=== PATIENT | male | born 1960 | race Asian ===

== ENCOUNTER 2020-07-29 05:48 | Day surgery (SDC) | payer BC ==
[~2020-07-29 05:48] MED LIST: Dextrose 5%-0.45% NaCl 1,000 ML IV SCH; Sodium Chloride 0.9% 10 ML Syringe FLUSH PRN
[2020-07-29] MEDS ORDERED: fentaNYL 100 MCG/2 ML SDV IV ONE ×3 (05:49→07:04)
[2020-07-29] MEDS ORDERED: Midazolam 1 MG/ML 2 ML SDV IV ONE ×7 (05:49→07:13)
[2020-07-29] MEDS ORDERED: fentaNYL 100 MCG/2 ML SDV ONE (06:44)
[2020-07-29] MEDS ORDERED: Midazolam 1 MG/ML 2 ML SDV ONE (06:44)
--- NOTE | 2020-07-29 08:18 | OR ---
DATE: 07/29/2020 PROCEDURE: Total colonoscopy. INSTRUMENT USED: PCF-H190DL Olympus video colonoscope. PREMEDICATIONS: Fentanyl 100 mcg intravenous, Versed 4 mg intravenous. The procedure was done under pulse oximetry, BP recording, and grips. INDICATION: The patient with abdominal pain and Hemoccult-positive stools. Colonoscopic examination is done for detection of any polypoid lesions and removal, endoscopic hemostasis therapy if needed. DESCRIPTION OF PROCEDURE: Initial rectal exam was unremarkable. Rigid anoscopy was normal. The colonoscope was passed with ease up to the ileocecal area. Photographs were taken of the normal-appearing cecum identified by landmarks of appendiceal orifice and double-bulged ileocecal folds. No bleeding was noted from any of the visualized areas at the commencement of the examination. The bowel preparation was found to be adequate. Garrett scale 2 in all the regions, total score 6. No stricture. No vascular ectasia. No large isolated ulcerations seen. No evidence of diffuse inflammatory bowel disease in the form of friability, contact bleeding, or ulcerations. No polyp or tumor mass identified. Probing the proximal sides of folds and flexures using adequate distention and clearing up the stool material, withdrawal of the scope was made, cecum to rectum time over 6 minutes. No bleeding was noted from any of the visualized areas at the completion of examination. IMPRESSION: Normal study. The patient tolerated the procedure well. [facility] /[id number]
[2020-07-29] MEDS ORDERED: Dextrose 5%-0.45% NaCl 1,000 ML IV SCH (10:15)
[2020-07-29 10:18] VITALS: BP 133/73; PULSE 57
== END 2020-07-29 09:30 | disposition home or self-care (01) ==
LOC: DL.ENDO 05:48
PROVIDERS: ATTEND Internal Medicine Gastroenterology
DX: R19.5 Other fecal abnormalities (principal); R10.10 Upper abdominal pain, unspecified; I25.10 Atherosclerotic heart disease of native coronary artery without angina pectoris; I10 Essential (primary) hypertension; E78.5 Hyperlipidemia, unspecified; E11.9 Type 2 diabetes mellitus without complications; Z79.84 Long term (current) use of oral hypoglycemic drugs; Z90.49 Acquired absence of other specified parts of digestive tract; Z95.1 Presence of aortocoronary bypass graft; Z87.11 Personal history of peptic ulcer disease; Z87.891 Personal history of nicotine dependence
CPT/HCPCS: J2250; J3010; J7042

== ENCOUNTER 2020-08-05 05:21 | Day surgery (SDC) | payer BC ==
[2020-08-05] MEDS ORDERED: fentaNYL 100 MCG/2 ML SDV IV ONE ×3 (05:22→06:31)
[2020-08-05] MEDS ORDERED: Midazolam 1 MG/ML 2 ML SDV IV ONE ×3 (05:22→06:32)
[2020-08-05] MEDS ORDERED: Sodium Chloride 0.9% 10 ML Syringe FLUSH PRN (05:30)
[2020-08-05] MEDS ORDERED: Dextrose 5%-0.45% NaCl 1,000 ML IV SCH (05:30)
[2020-08-05] MEDS ORDERED: fentaNYL 100 MCG/2 ML SDV ONE (06:12)
[2020-08-05] MEDS ORDERED: Midazolam 1 MG/ML 2 ML SDV ONE (06:12)
--- NOTE | 2020-08-05 07:25 | OR ---
DATE: 08/05/2020 PROCEDURES: Esophagogastroduodenoscopy and multiple pinch biopsies. INSTRUMENT USED: GIF-HQ190 Olympus video panendoscope. PREMEDICATIONS: No oral or topical anesthesia used. Fentanyl 100 mcg intravenous, Versed 2 mg intravenous. The procedure was done under pulse oximetry, BP recording, and registered nurse cardiac. INDICATION: The patient with long-standing heartburn and upper abdominal pain unexplained and not responsive to medical measures and also has Hemoccult positive stools. Esophagogastroduodenoscopy is performed for detection of any active erosive lesions, Magana esophagus and/or malignancy also under consideration, H pylori status to be determined, endoscopic hemostasis therapy if needed. PROCEDURE IN DETAIL: The scope was passed with ease. Adequate visualization of the esophagus was made from proximal to distal areas. No upper esophageal lesions identified. No distal esophageal stricture. No uphill or downhill esophageal varices. No Elsy-Stauffer tear. No evidence of erosive esophagitis by [place] criteria. No esophageal polyp or tumor mass identified. Z-line was seen at around 39 cm distal to the oral verge, configuration consistent with grade 1 by ZAP classification. No proximal gastric varices noted. Gastric fundus examination by retroflexion showed no polypoid lesions. No gastric ulcer, malignant mass, or vascular ectasia identified. Duodenal bulb showed no ulcer. Visualized second part of the duodenum was unremarkable. Multiple pinch biopsies were taken from the gastric antrum and proximal body and sent for PyloriTek test for H pylori, and if negative in an hour, the tissue is to be sent for histopathology. No bleeding was noted from any of the visualized areas at the completion of examination. IMPRESSION: Normal study. The patient tolerated the procedure well. [facility] /[id number]
[2020-08-05 08:34] VITALS: BP 174/78; PULSE 50
== END 2020-08-05 08:46 | disposition home or self-care (01) ==
LOC: DL.ENDO 05:21
PROVIDERS: ATTEND Internal Medicine Gastroenterology
DX: R12 Heartburn (principal); R10.10 Upper abdominal pain, unspecified; I25.10 Atherosclerotic heart disease of native coronary artery without angina pectoris; E78.5 Hyperlipidemia, unspecified; E11.9 Type 2 diabetes mellitus without complications; Z87.891 Personal history of nicotine dependence; Z95.1 Presence of aortocoronary bypass graft; Z90.49 Acquired absence of other specified parts of digestive tract; Z87.11 Personal history of peptic ulcer disease; Z80.0 Family history of malignant neoplasm of digestive organs
CPT/HCPCS: 87077; J2250; J3010; J7042